=== PATIENT | male | born 1955 | race Caucasian/White ===

== ENCOUNTER 2017-01-10 18:59 | Emergency (ER) | payer OTHER ==
[~2017-01-10] VITALS: Ht 182.9 cm; Wt 112.5 kg
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
[2017-01-10] MEDS ORDERED: IBUPROFEN800 MG PO (19:52)
[2017-01-10 19:57] VITALS: BP 104/70
--- NOTE | 2017-01-11 07:19 | RADIOLOGY REPORT PS360 ---
ANKLE-RT-3 VIEWS COMPARISON: No HISTORY: Right ankle pain and swelling after a fall TECHNIQUE: AP lateral and oblique views FINDINGS: There is prominent and diffuse soft tissue swelling of the ankle both medially and laterally. Medial and lateral malleolus appear intact iliac mortise is normal. There is a calcaneal spur at the insertion of plantar tendon. IMPRESSION: Prominent soft tissue injury, right ankle negative for fracture
--- OUTSIDE RECORDS SUMMARY | 2017-01-13 17:32 | External Medical Summary Rpt ---
Author Author [employer] Organization [employer] Address Unknown Phone Unavailable Purpose Continuity of Care Document - through 2016
--- OUTSIDE RECORDS SUMMARY | 2017-01-13 17:32 | External Medical Summary Rpt ---
Author Author JUSTIN Address Unknown Phone [email or web address] Purpose Continuity of Care Document - through 2016
--- OUTSIDE RECORDS SUMMARY | 2017-01-13 17:32 | External Medical Summary Rpt ---
Demographics Preferred Language Mongolian Marital Status Unknown Sabianism Affiliation Unknown Race Unknown Ethnic Group Unknown Author Author DILLON Address Unknown Phone Immunization Unable to retrieve immunization data due to connection failure with Immunization Registry. Please try again later.
--- OUTSIDE RECORDS SUMMARY | 2017-01-13 17:32 | External Medical Summary Rpt ---
Author Author JUSTIN Address Unknown Phone [email or web address] Purpose Continuity of Care Document - through 2016
--- OUTSIDE RECORDS SUMMARY | 2017-01-13 17:32 | External Medical Summary Rpt ---
Demographics Preferred Language Hebrew Marital Status Unknown Mu-Ism Affiliation Unknown Race Unknown Ethnic Group Unknown Author Author DILLON Address Unknown Phone Immunization Unable to retrieve immunization data due to connection failure with Immunization Registry. Please try again later.
== END 2017-01-10 20:00 | disposition home or self-care (01) ==
LOC: UTC 18:59
DX: S93.401A Sprain of unspecified ligament of right ankle, initial encounter (principal); W22.8XXA Striking against or struck by other objects, initial encounter

== ENCOUNTER 2017-03-02 11:24 | Emergency (ER) | payer OTHER ==
[~2017-03-02] VITALS: Ht 182.9 cm; Wt 113.4 kg
[~2017-03-02 11:24] MED LIST: IBUPROFEN800 MG PO
[2017-03-02] MEDS ORDERED: CELEBREX 200MG200 MG PO (11:54)
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
[2017-03-02 12:07] VITALS: BP 127/71
== END 2017-03-02 12:07 | disposition home or self-care (01) ==
LOC: ER 11:24
DX: S93.491A Sprain of other ligament of right ankle, initial encounter (principal); Z72.0 Tobacco use; X50.1XXA Overexertion from prolonged static or awkward postures, initial encounter

== ENCOUNTER → 2017-03-08 | Outpatient (CLI) | payer OTHER ==
[~2017-03-08] MED LIST changes: +CELEBREX 200MG200 MG PO
--- NOTE | 2017-03-08 11:24 | RADIOLOGY REPORT PS360 ---
ANKLE-RT-3 VIEWS HISTORY: RT ANKLE PAIN ORDERING PHYSICIAN: JOSE FIORE MD PATIENT AGE: 61 years COMPARISON: None FINDINGS: There is generalized soft tissue swelling over the lateral malleolus. A very faint opacity is present at this area could be due to a an avulsion fracture. CT may confirm clinically desired. No other significant anomalies are evident. IMPRESSION: Possible avulsion fracture of the lateral talus versus distal lateral malleolus with soft tissue swelling. CT may confirm
== END ==
LOC: RAD 10:26
DX: M25.571 Pain in right ankle and joints of right foot (principal); S93.491A Sprain of other ligament of right ankle, initial encounter